=== PATIENT | female | born 1995 | race Caucasian/White ===

== ENCOUNTER 2022-03-13 02:09 | Outpatient (CLI) | payer SELFPAY ==
[2022-03-13 02:26] VITALS: BP 109/60
[2022-03-13] MEDS ORDERED: LACTATED RINGERS 1,000 ML IV ONE (02:44)
[2022-03-13 03:49] LABS: Hematocrit 38.9 % (30.3-42.9); Hemoglobin 12.4 gm/dl (10.1-14.3); Mean Corpuscular HGB Conc 32 % (30-34); Mean Corpuscular Volume 84 fl (79-97); Red Blood Count 4.61 M/mm3 (3.65-5.03); Red Cell Distribution Width 15.6 % (13.2-15.2)
[2022-03-13 04:03] LABS: Platelet Count 179 K/mm3 (140-440)
--- NOTE | 2022-03-13 04:14 | Ultrasound Report ---
LIMITED OBSTETRICAL ULTRASOUND INDICATION: clyde,efw,cervical length COMPARISON: None available FINDINGS: Single intrauterine is seen in a cephalic position. Cardiac activity was document ed with heart rate of 183 bpm period placenta is not well evaluated but appears to be posterior and is free of the internal cervical os. Cervical length is 4.6 cm and is closed. No fluid is seen w ithin the cervical canal. Estimated gestational age is 29 weeks 3 days which corresponds with clinica l dating. No significant discrepancy is seen between head and body measurements. Amniotic fluid volum e appears qualitatively appropriate and CLYDE is within normal limits at 14.3 cm. Estimated weigh t is 136 2 g +/- 2 102 g in the 16th percentile. IMPRESSION: 29 week 3 day intrauterine without obvious acute abnormality Signer Name: Ole Rivera MD Signed: 03/13/2022 4:10 AM Workstation Name: [id number]
[2022-03-13 04:52] LABS: Color,Urine Yellow (Yellow)
[2022-03-13 04:54] LABS: Bacteria,Urine 1+ /HPF (Negative); Mucus,Urine 2+ /HPF
[2022-03-13 04:58] LABS: Ictotest,Urine Negative (Negative)
== END 2022-03-13 05:15 | disposition home or self-care (01) ==
LOC: TRG 02:09 → APU 02:10 → TRG 05:15
PROVIDERS: ATTEND Obstetrics & Gynecology Gynecology
DX: O62.9 Abnormality of forces of labor, unspecified (principal); Z3A.29 29 weeks gestation of pregnancy
CPT/HCPCS: 36415; 59025; 76816; 81001; 82731; 85027; 96360; J7120

== ENCOUNTER 2022-03-13 17:25 | Inpatient (IN) | payer SELFPAY ==
[2022-03-13] MEDS ORDERED: LACTATED RINGERS 1,000 ML IV ONE (17:56)
[2022-03-13] MEDS ORDERED: ACETAMINOPHEN 325 MG TAB PO ONE (18:20)
[2022-03-13 18:27] LABS: Bacteria,Urine 2+ /HPF (Negative)
[2022-03-13 18:30] LABS: WBC,Urine > 182.0 /HPF (0.0-6.0)
[2022-03-13 18:31] LABS: Color,Urine Straw (Yellow)
[2022-03-13] MEDS ORDERED: ACETAMINOPHEN 500 MG TAB ONE (18:39)
[2022-03-13] MEDS ORDERED: ACETAMINOPHEN 500 MG TAB PO ONE (18:40)
[2022-03-14] MEDS ORDERED: LACTATED RINGERS 1,000 ML ONE (01:03)
[2022-03-14 01:28] LABS: Basophils % (Auto) 0.2 % (0.0-1.8); Eosinophils % (Auto) 0.1 % (0.0-4.3); Hematocrit 37.3 % (30.3-42.9); Hemoglobin 12.4 gm/dl (10.1-14.3); Lymphocytes # (Auto) 0.7 K/mm3 (1.2-5.4); Lymphocytes % (Auto) 6.3 % (13.4-35.0); Mean Corpuscular HGB Conc 33 % (30-34); Mean Corpuscular Volume 84 fl (79-97); Monocytes # (Auto) 0.9 K/mm3 (0.0-0.8); Monocytes % (Auto) 8.9 % (0.0-7.3); Platelet Count 170 K/mm3 (140-440); Red Blood Count 4.46 M/mm3 (3.65-5.03); Red Cell Distribution Width 15.9 % (13.2-15.2)
[2022-03-14] MEDS ORDERED: ACETAMINOPHEN 500 MG TAB PO ONE ×2 (01:55→17:00)
[2022-03-14] MEDS ORDERED: fentaNYL 100 MCG/2 ML INJ IV PRN (05:59)
--- NOTE | 2022-03-14 05:59 | History and Physical Report ---
History of Present Illness Date of examination: 03/14/22 Date of admission: 03/14/2022 Chief complaint: Fever and contractions History of present illness: 26-year-old primigravida at 31 weeks gestation presents to OB triage reporting contractions and subjective fever. There is no vaginal bleeding. There is no leaking fluid. There is good movement. The patient has upper body myalgias and flank pain. In OB triage, contractions were every 2 to 3 minutes. fibronectin test was positive. However, recent transvaginal pelvic ultrasound showed a cervical length of greater than 4 cm. Contractions were mild in nature. The patient had a temperature that is greater than 102 F. Lactic acid level was elevated. Clinical exam and urinalysis was suspicious for pyelonephritis. Intravenous Rocephin was ordered. The patient was admitted to the antepartum unit for management of pyelonephritis, lactic acidosis, fever, and contractions. 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 Family/Genetic History: diabetes, hypertension Social history: no significant social history - Obstetrical History Expected Date of Delivery: 05/16/22 Actual Gestation: 31 Week(s) 0 Day(s) : 1 Para: 0 Hx # Term Pregnancies: 0 Number of Pregnancies: 0 Spontaneous Abortions: 0 Induced : 0 Number of Living Children: 0 Medications and Allergies Allergies Allergy/AdvReac Type Severity Reaction Status Date / Time No Known Allergies Allergy Verified 03/13/22 17:33 Review of Systems All systems: negative - Vital Signs Vital signs: Vital Signs Pulse BP Pulse Ox 113 H 98/54 95 03/13/22 17:31 03/13/22 17:31 03/13/22 17:31 Temp Pulse Resp BP Pulse Ox 98.6 F 75 16 120/56 95 03/14/22 05:07 03/14/22 05:54 03/14/22 05:07 03/14/22 01:29 03/14/22 05:54 - Physical Exam Breasts: Positive: normal Cardiovascular: Regular rate Lungs: Positive: Normal air movement Abdomen: Positive: normal appearance, soft, other (There is CVA tenderness) Genitourinary (Female): Positive: normal external genitalia, normal perenium Vulva: both: normal Vagina: Positive: normal moisture Uterus: Positive: enlarged Adnexa: both: normal Anus/Rectum: Positive: normal perianal skin Extremities: Positive: normal Deep Tendon Reflex Grade: Normal +2 - Obstetrical FHR: category 1 Uterine Contraction Monitor Mode: External Uterine Contraction Frequency (min): 3 Results Result Diagrams: 03/14/22 01:17 Abnormal lab results 03/13/22 03/14/22 03/14/22 Range/Units Unknown 01:17 01:17 RDW 15.9 H (13.2-15.2) % Lymph % (Auto) 6.3 L (13.4-35.0) % [place] % (Auto) 8.9 H (0.0-7.3) % Lymph # (Auto) 0.7 L (1.2-5.4) K/mm3 [place] # (Auto) 0.9 H (0.0-0.8) K/mm3 Seg Neutrophils % 84.5 H (40.0-70.0) % Seg Neutrophils # 9.0 H (1.8-7.7) K/mm3 Lactic Acid 2.30 H* (0.7-2.0) mmol/L Urine WBC (Auto) > 182.0 H (0.0-6.0) /HPF fFN= (+) Ultrasound: report reviewed, image reviewed, other (OB Ultrasound Limited= SLIUP. Vertex. Posterio placenta. EFW= 1362 g (16th %-ile). AF= 14.3 cm. Cervical length= 4.6 cm) Assessment and Plan - Patient Problems (1) 31 weeks gestation of Current Visit: Yes Status: Acute Plan to address problem: care is up-to-date at [facility]. 1 hour GTT is normal. GBS culture is ordered. (2) Pyelonephritis affecting in third trimester Current Visit: Yes Status: Acute Plan to address problem: Clinical exam and urinalysis is suspicious for pyelonephritis. Start IV Rocephin. After patient stabilizes and 24-48 hours, discharged home with oral Omnicef. Straight cath urine culture ordered. (3) uterine contractions in third trimester, antepartum Current Visit: Yes Status: Acute Plan to address problem: Although fibronectin was positive, cervical length is greater than 4 cm and cervix appears closed on ultrasound. Therefore, labor is unlikely. Thus, no glucocorticoids/magnesium/tocolytics at this time. (4) Maternal pyrexia, antepartum Current Visit: Yes Status: Acute Plan to address problem: Temperature was greater than 102F. I believe that pyelonephritis is the cause for this fever. Out of an abundance of caution, blood cultures are ordered. Urine culture was ordered as well. SARS-CoV-2 PCR was ordered. Lactic acid level was elevated. (5) Lactic acidosis Current Visit: Yes Status: Acute Plan to address problem: Lactic acid level is elevated. Blood cultures ordered. Urine cultures ordered. I ordered intravenous Rocephin for treatment of pyelonephritis. Repeat lactic acid level in the morning. Clinically, the patient is hemodynamically stable. In the event the patient's clinical condition changes and the patient comes hemodynamically unstable, consider infectious disease consultation.
[2022-03-14] MEDS ORDERED: LACTATED RINGERS 1,000 ML IV SCH (06:00)
--- NOTE | 2022-03-14 07:58 | Ultrasound Report ---
ULTRASOUND RENAL INDICATION / CLINICAL INFORMATION: Pyelonephritis. COMPARISON: None available. FINDINGS: RIGHT KIDNEY: Length = 12.1 cm. [normal > 9 cm] - Parenchymal Thickness = 1.8 cm. [normal > 1.5 cm] - Echogenicity: Normal. - Hydronephrosis: None. - Cyst or mass: No significant abnormality. - Stones: None seen. LEFT KIDNEY: Length = 12.4 cm. [normal > 9 cm] - Parenchymal Thickness = 2.1 cm. [normal > 1.5 cm] - Echogenicity: Normal. - Hydronephrosis: None. - Cyst or mass: No significant abnormality. - Stones: None seen. URINARY BLADDER: No significant abnormality. FREE FLUID: None. ADDITIONAL FINDINGS: None. IMPRESSION: No significant abnormality. If pyelonephritis is suspected, CT abdomen pelvis with contrast should p rovide the most information. Signer Name: Jerry Bullard Jr, MD Signed: 03/14/2022 7:53 AM Workstation Name: [id number]
[2022-03-14] MEDS ORDERED: SODIUM CHLORIDE 0.9% 1000 ML 1,000 ML IV SCH (08:00)
[2022-03-14] MEDS ORDERED: cefTRIAXone/NS 1 GM/50 ML 1 GM/50 ML BAG IV SCH (08:00)
[2022-03-14] MEDS: ACETAMINOPHEN 325 MG TAB PO PRN ×2 (09:31→23:02)
[2022-03-14] MEDS: HEPARIN 5,000 UNIT/1 ML VIAL SUB-Q SCH ×2 (09:35→22:32)
[2022-03-14 10:54] LABS: Blood Urea Nitrogen 7 mg/dL (7-17); Calcium 8.6 mg/dL (8.4-10.2); Hemolysis Index 13
[2022-03-14 11:01] LABS: BUN/Creatinine Ratio 18
[2022-03-14 12:57] LABS: Basophils % (Auto) 0.2 % (0.0-1.8); Eosinophils % (Auto) 0.1 % (0.0-4.3); Hematocrit 32.4 % (30.3-42.9); Hemoglobin 10.5 gm/dl (10.1-14.3); Lymphocytes # (Auto) 0.4 K/mm3 (1.2-5.4); Lymphocytes % (Auto) 5.3 % (13.4-35.0); Mean Corpuscular HGB Conc 32 % (30-34); Mean Corpuscular Volume 85 fl (79-97); Monocytes # (Auto) 0.5 K/mm3 (0.0-0.8); Monocytes % (Auto) 6.6 % (0.0-7.3); Platelet Count 138 K/mm3 (140-440); Red Blood Count 3.79 M/mm3 (3.65-5.03); Red Cell Distribution Width 16.1 % (13.2-15.2)
[2022-03-14] MEDS ORDERED: GENTAMICIN/NS 80 MG/100 ML 100 ML IV ONE (14:43)
--- NOTE | 2022-03-14 14:58 | Event Note ---
Date: 03/14/22 Patient still spiking temps. 102F. Cultures pending. using tepid sponging and tylenol to lower temps. Started on ancef and gentamicin. Hospitalist consulted.
[2022-03-14] MEDS ORDERED: ceFAZolin/NS 1 GM/50 ML 1 GM/50 ML BAG IV SCH (15:00)
--- NOTE | 2022-03-14 16:34 | Consultation ---
History of Present Illness - Reason for Consult Consult date: 03/14/22 Medical management Requesting physician: KAIA LEOS - History of Present Illness 26-year-old primigravida at 31 weeks gestation presents to OB triage reporting contractions and subjective fever. There is no vaginal bleeding. There is no leaking fluid. There is good movement. The patient has upper body myalgias and flank pain. In OB triage, contractions were every 2 to 3 minutes. fibronectin test was positive. However, recent transvaginal pelvic ultrasound showed a cervical length of greater than 4 cm. Contractions were mild in nature. The patient had a temperature that is greater than 102 F. Lactic acid level was elevated. Clinical exam and urinalysis was suspicious for pyelonephritis. Intravenous Rocephin was ordered. The patient was admitted to the antepartum unit for management of pyelonephritis, lactic acidosis, fever, and contractions. 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 Family/Genetic History: diabetes, hypertension Social history: no significant social history - Obstetrical History Expected Date of Delivery: 05/16/22 Actual Gestation: 31 Week(s) 0 Day(s) : 1 Para: 0 Hx # Term Pregnancies: 0 Number of Pregnancies: 0 Spontaneous Abortions: 0 Induced : 0 Number of Living Children: 0 Medications and Allergies Allergies Allergy/AdvReac Type Severity Reaction Status Date / Time No Known Allergies Allergy Verified 03/13/22 17:33 Review of Systems All systems: negative Past History Social history: no significant social history Medications and Allergies Allergies Allergy/AdvReac Type Severity Reaction Status Date / Time No Known Allergies Allergy Verified 03/13/22 17:33 Active Meds: Active Medications Acetaminophen (Acetaminophen 325 Mg Tab) 650 mg PO Q4H PRN PRN Reason: Pain, Mild (1-3) Last Admin: 03/14/22 09:31 Dose: 650 mg Fentanyl (Fentanyl 100 Mcg/2 Ml Inj) 100 mcg IV Q2H PRN PRN Reason: Pain, Moderate (4-6) Heparin Sodium (Porcine) (Heparin 5,000 Unit/1 Ml Vial) 5,000 unit SUB-Q Q12HR CAMRYN Last Admin: 03/14/22 09:35 Dose: 5,000 unit Lactated Ringer's (Lactated Ringers) 1,000 mls @ 125 mls/hr IV DIRECT CAMRYN Ceftriaxone Sodium (Rocephin/Ns 1 Gm/50 Ml) 1 gm in 50 mls @ 100 mls/hr IV Q24H CAMRYN; Protocol Stop: 03/21/22 07:59 Last Admin: 03/14/22 09:12 Dose: 100 mls/hr Sodium Chloride (Nacl 0.9% 1000 Ml) 1,000 mls @ 150 mls/hr IV DIRECT CAMRYN Last Admin: 03/14/22 09:09 Dose: 150 mls/hr Cefazolin Sodium (Ancef/Ns 1 Gm/50 Ml) 1 gm in 50 mls @ 100 mls/hr IV Q8H CAMRYN; Protocol Last Admin: 03/14/22 15:31 Dose: 100 mls/hr Exam - Constitutional Vitals: Temp Pulse Resp BP Pulse Ox 102.9 F H 110 H 16 107/59 96 03/14/22 14:34 03/14/22 16:16 03/14/22 14:34 03/14/22 16:15 03/14/22 16:16 General appearance: Present: no acute distress, well-nourished - EENT Eyes: Present: PERRL ENT: hearing intact, clear oral mucosa - Neck Neck: Present: supple, normal ROM - Respiratory Respiratory effort: normal Respiratory: bilateral: CTA - Cardiovascular Heart rate: 78 Rhythm: regular Heart Sounds: Present: S1 & S2. Absent: rub, click - Extremities Extremities: pulses symmetrical, No edema Peripheral Pulses: within normal limits - Abdominal General gastrointestinal: Present: soft, non-tender, non-distended, normal bowel sounds Female genitourinary: Present: normal - Integumentary Integumentary: Present: clear, warm, dry - Musculoskeletal Musculoskeletal: gait normal, strength equal bilaterally - Psychiatric Psychiatric: appropriate mood/affect, intact judgment & insight - Neurologic Neurologic: CNII-XII intact, moves all extremities - Allied Health Allied health notes reviewed: nursing, case management Results - Labs CBC & Chem 7: 03/14/22 11:12 03/14/22 10:20 Labs: Abnormal lab results 03/13/22 03/14/22 03/14/22 Range/Units Unknown 01:17 01:17 RDW 15.9 H (13.2-15.2) % Plt Count (140-440) K/mm3 Lymph % (Auto) 6.3 L (13.4-35.0) % [place] % (Auto) 8.9 H (0.0-7.3) % Lymph # (Auto) 0.7 L (1.2-5.4) K/mm3 [place] # (Auto) 0.9 H (0.0-0.8) K/mm3 Seg Neutrophils % 84.5 H (40.0-70.0) % Seg Neutrophils # 9.0 H (1.8-7.7) K/mm3 Potassium (3.6-5.0) mmol/L Creatinine (0.6-1.2) mg/dL Glucose (65-100) mg/dL POC Glucose (70-105) mg/dL Lactic Acid 2.30 H* (0.7-2.0) mmol/L Urine WBC (Auto) > 182.0 H (0.0-6.0) /HPF 03/14/22 03/14/22 03/14/22 Range/Units 10:20 11:12 11:19 RDW 16.1 H (13.2-15.2) % Plt Count 138 L (140-440) K/mm3 Lymph % (Auto) 5.3 L (13.4-35.0) % [place] % (Auto) (0.0-7.3) % Lymph # (Auto) 0.4 L (1.2-5.4) K/mm3 [place] # (Auto) (0.0-0.8) K/mm3 Seg Neutrophils % 87.8 H (40.0-70.0) % Seg Neutrophils # (1.8-7.7) K/mm3 Potassium 3.0 L (3.6-5.0) mmol/L Creatinine 0.4 L (0.6-1.2) mg/dL Glucose 29 L* (65-100) mg/dL POC Glucose 119 H (70-105) mg/dL Lactic Acid (0.7-2.0) mmol/L Urine WBC (Auto) (0.0-6.0) /HPF Short CBC 03/14/22 Range/Units 11:12 WBC 7.2 (4.5-11.0) K/mm3 Hgb 10.5 (10.1-14.3) gm/dl Hct 32.4 (30.3-42.9) % Plt Count 138 L (140-440) K/mm3 [facility] 03/14/22 10:20 Sodium 140 Potassium 3.0 L Chloride 103.7 Carbon Dioxide 22 BUN 7 Creatinine 0.4 L Glucose 29 L* Calcium 8.6 Assessment and Plan - Patient Problems (1) Pyelonephritis affecting in third trimester Current Visit: Yes Status: Acute Plan to address problem: Patient initiated on IV ceftriaxone pending urine cultures Ceftriaxone should be sensitive to gram-negative rods Usually Cipro and Levaquin have assistance in this community No need for gentamicin (2) Hypoglycemia Current Visit: Yes Status: Acute Plan to address problem: Patient initiated on D5W drip Glucagon if necessary (3) Hypokalemia Current Visit: Yes Status: Acute Plan to address problem: Supplemented (4) DVT prophylaxis Current Visit: Yes Status: Acute Plan to address problem: On heparin and GI prophylaxis (5) Advance care planning Current Visit: Yes Status: Acute Plan to address problem: Disease education conducted, care plan discussed, diagnosis discussed and prognosis discussed. Patient acknowledged understanding with care plan. +30 minutes.
[2022-03-14] MEDS ORDERED: ACETAMINOPHEN 500 MG TAB ONE (16:54)
[2022-03-14] MEDS ORDERED: SODIUM CHLORIDE 0.9% IV SCH (19:45)
[2022-03-14] MEDS ORDERED: GENTAMICIN/NS 100 MG/100 ML 100 MG/100 ML BAG IV SCH (19:45)
[2022-03-14] MEDS ORDERED: GENTAMICIN IV SCH (19:45)
[2022-03-14] MEDS ORDERED: SODIUM CHLORIDE 0.9% 1000 ML 1,000 ML IV ONE (19:51)
[2022-03-14] MEDS: POTASSIUM CHLORIDE 10 MEQ 10 MEQ/100 ML BAG IV SCH ×2 (22:24→23:54)
[2022-03-14] MEDS: SODIUM CHLORIDE 0.9% 1000 ML 1,000 ML IV SCH (22:51)
--- NOTE | 2022-03-14 23:49 | Ultrasound Report ---
LIMITED OBSTETRICAL ULTRASOUND INDICATION: contractions COMPARISON: 03/13/2022 FINDINGS: Very limited study of the cervix shows cervical length to be 4.7 cm which is similar to yes terday study. Smaller fluid is seen in the cervical canal but the internal os is not widened. IMPRESSION: Cervical findings as above Signer Name: Ole Rivera MD Signed: 03/14/2022 11:45 PM Workstation Name: [id number]
--- NOTE | 2022-03-14 23:54 | Event Note ---
Date: 03/14/22 CHIEF COMPLAINT: HD #1, Bacteremia, Urosepsis, Fever HISTORY OF PRESENT ILLNESS: 26-year-old primagravida at 31 weeks gestation reports subjective fevers and chills. Etiology was suspected to be pyelonephritis. The patient received 1 dose of Rocephin, 1 dose of Ancef, and 1 dose of gentamic in this morning/afternoon. Although lactic acid level decreased and patient remained hemodynamically stable, intermittent temperature elevations to the 102 F range continued. Therefore, hospitalist medicine (Dr. Arredondo) and infectious disease (Dr. Kim) was consulted. Thereafter, cefepime was ordered. labor was ruled out. OBJECTIVE: T= 102 F BP= 129/69 P= 118 EFM= category 2. ( tachycardia is presumed to be secondary to maternal tachycardia from bacteremia/urosepsis.) TOCO= q 2 min SVE= closed BACK= (R) CVAT LABS: Blood cultures= gram-negative rods (preliminary) Urine culture= pending GBS culture= pending fFN= (+) UA= >182 WBC, 2+ bacteria ABG= 7.46/24/103/16.8/-5.7/97.5% on RA Lactic Acid= 2.3 --> 1.3 K+= 3.0 Repeat CBC/BMP/lactic acid= ordered for 03/15/2022 at 7:00 am. RADIOLOGY: OB transvaginal ultrasound= cervical length is 4.7 cm Bilateral renal ultrasound= WNL OB Ultrasound Limited= SLIUP. Vertex. Posterior placenta. EFW= 1362 g (16th %-ile). CLYDE= 14.3 cm. IMPRESSION: 1.) 31 weeks 2.) Bacteremia 3.) Urosepsis 4.) Maternal pyrexia 5.) Lactic acidosis 6.) contractions 7.) Hypokalemia PLAN: 1.) care is up-to-date at [facility]. 1 hour GTT is within normal limits. GBS cultures pending. 2.) Await final microbiology results of blood cultures and urine culture. 3.) In the interim, continue intravenous cefepime for treatment of bacteremia/urosepsis. 4.) Continue IV normal saline. 5.) Replace K+ with KCl riders x5 and recheck BMP in the morning. 6.) Await formal infectious disease consultation. 7.) Hospital medicine service already consulted. 8.) NST every shift.
[2022-03-14] MEDS: CEFEPIME/NS 2 GM/100 ML 2 GM/100 ML BAG IV SCH (23:55)
[2022-03-15] MEDS ORDERED: CEFEPIME/NS 2 GM/100 ML 2 GM/100 ML BAG IV SCH
[2022-03-15] MEDS: POTASSIUM CHLORIDE 10 MEQ 10 MEQ/100 ML BAG IV SCH ×3 (01:06→03:45)
[2022-03-15] MEDS: ACETAMINOPHEN 325 MG TAB PO PRN ×2 (03:57→11:55)
[2022-03-15] MEDS ORDERED: POTASSIUM CHLORIDE ER 20 MEQ TAB PO ONE (06:43)
[2022-03-15] MEDS: CEFEPIME/NS 2 GM/100 ML 2 GM/100 ML BAG IV SCH ×2 (07:28→16:22)
[2022-03-15 08:26] LABS: Basophils % (Auto) 0.1 % (0.0-1.8); Hematocrit 31.1 % (30.3-42.9); Hemoglobin 10.1 gm/dl (10.1-14.3); Lymphocytes # (Auto) 0.8 K/mm3 (1.2-5.4); Lymphocytes % (Auto) 9.1 % (13.4-35.0); Mean Corpuscular HGB Conc 33 % (30-34); Mean Corpuscular Volume 85 fl (79-97); Monocytes # (Auto) 0.8 K/mm3 (0.0-0.8); Monocytes % (Auto) 9.7 % (0.0-7.3); Platelet Count 121 K/mm3 (140-440); Red Blood Count 3.67 M/mm3 (3.65-5.03); Red Cell Distribution Width 16.6 % (13.2-15.2)
[2022-03-15 08:41] LABS: Blood Urea Nitrogen 4 mg/dL (7-17); Calcium 7.2 mg/dL (8.4-10.2); Hemolysis Index 5
[2022-03-15 09:09] LABS: BUN/Creatinine Ratio 10
--- NOTE | 2022-03-15 09:30 | Consultation ---
History of Present Illness - Reason for Consult Consult date: 03/15/22 GNR bacteremia Requesting physician: LIZZY CASTILLO - History of Present Illness The patient is a 26-year-old female about 31 weeks was admitted with fever, myalgias, flank pain. UA showed significant pyuria. Blood cultures turned positive for gram-negative rods, hence infectious diseases was consulted. She had received 1 dose of ceftriaxone, Ancef and gentamicin and was later switched to IV cefepime. Afebrile today. Renal ultrasound showed no significant abnormality. Has R flank pain, feeling slightly better. Does not speak Hungarian, Lao speaking. Review of Systems: As per HPI Past History Social history: no significant social history Medications and Allergies Allergies Allergy/AdvReac Type Severity Reaction Status Date / Time No Known Allergies Allergy Verified 03/13/22 17:33 Active Meds: Active Medications Acetaminophen (Acetaminophen 325 Mg Tab) 650 mg PO Q4H PRN PRN Reason: Pain, Mild (1-3) Last Admin: 03/15/22 03:57 Dose: 650 mg Fentanyl (Fentanyl 100 Mcg/2 Ml Inj) 100 mcg IV Q2H PRN PRN Reason: Pain, Moderate (4-6) Heparin Sodium (Porcine) (Heparin 5,000 Unit/1 Ml Vial) 5,000 unit SUB-Q Q12HR CAMRYN Last Admin: 03/14/22 22:32 Dose: 5,000 unit Sodium Chloride (Nacl 0.9% 1000 Ml) 1,000 mls @ 150 mls/hr IV DIRECT CAMRYN Last Admin: 03/14/22 22:51 Dose: 150 mls/hr Cefepime HCl (Cefepime/Ns 2 Gm/100 Ml) 2 gm in 100 mls @ 200 mls/hr IV Q8H CAMRYN; Protocol Stop: 03/22/22 00:00 Last Admin: 03/15/22 07:28 Dose: 200 mls/hr Physical Examination - Physical Exam Narrative exam: Physical Exam: Constitutional: Alert, cooperative. No acute distress Head, Ears, Nose: Normocephalic, atraumatic. External ears, nose normal Eyes: Conjunctivae/corneas clear. No icterus. No ptosis. Neck: Supple, no meningeal signs Cardiovascular: S1, S2 + Respiratory: Good air entry, clear to auscultation bilaterally GI: Soft, non-tender; bowel sounds normal. No peritoneal signs. Gravid uterus. Mild R flank tenderness Musculoskeletal: No pedal edema, no cyanosis. Skin: No rash or abscess Hem/Lymphatic: No palpable cervical or supraclavicular nodes. No lymphangitis Psych: Mood ok. Affect normal Neurological: Awake, alert, oriented. No gross abnormality - Constitutional Vitals: Vital Signs Temp Pulse Resp BP Pulse Ox 98.8 F 103 H 20 106/57 95 03/15/22 07:23 03/15/22 09:23 03/15/22 07:23 03/15/22 07:23 03/15/22 09:23 Temperature -Last 24 Hours Temperature 98.8 F Temperature 98.7 F Temperature 99.7 F Temperature 100.6 F Temperature 101.6 F Temperature 102 F Temperature 99.4 F Temperature 102.8 F Temperature 102.9 F Temperature 97.9 F Results - Labs CBC & Chem 7: 03/15/22 07:50 03/15/22 07:50 Labs: Abnormal lab results 03/14/22 03/14/22 03/14/22 Range/Units 10:20 11:12 11:19 RDW 16.1 H (13.2-15.2) % Plt Count 138 L (140-440) K/mm3 Lymph % (Auto) 5.3 L (13.4-35.0) % [place] % (Auto) (0.0-7.3) % Lymph # (Auto) 0.4 L (1.2-5.4) K/mm3 Seg Neutrophils % 87.8 H (40.0-70.0) % ABG pH (7.320-7.450) POC ABG pCO2 (32.0-48.0) mmHg ABG Hemoglobin (12.0-17.5) ABG Sodium (136.0-145.0) mmol/L ABG Chloride (98-107) mmol/L ABG Glucose (65-95) mg/dL Carboxyhemoglobin (0.5-1.5) Sodium (137-145) mmol/L Potassium 3.0 L (3.6-5.0) mmol/L Chloride (98-107) mmol/L Carbon Dioxide (22-30) mmol/L BUN (7-17) mg/dL Creatinine 0.4 L (0.6-1.2) mg/dL Glucose 29 L* (65-100) mg/dL POC Glucose 119 H (70-105) mg/dL Calcium (8.4-10.2) mg/dL Arterial Blood Glucose (65-95) mg/dL Arterial Blood Ionized Calcium (4.6-5.3) mg/dL 03/14/22 03/15/22 03/15/22 Range/Units 21:16 07:50 07:50 RDW 16.6 H (13.2-15.2) % Plt Count 121 L (140-440) K/mm3 Lymph % (Auto) 9.1 L (13.4-35.0) % [place] % (Auto) 9.7 H (0.0-7.3) % Lymph # (Auto) 0.8 L (1.2-5.4) K/mm3 Seg Neutrophils % 81.1 H (40.0-70.0) % ABG pH 7.460 H (7.320-7.450) POC ABG pCO2 24.1 L (32.0-48.0) mmHg ABG Hemoglobin 10.4 L (12.0-17.5) ABG Sodium 132.8 L (136.0-145.0) mmol/L ABG Chloride 109.0 H (98-107) mmol/L ABG Glucose 100 H (65-95) mg/dL Carboxyhemoglobin 0.3 L (0.5-1.5) Sodium 136 L (137-145) mmol/L Potassium 3.4 L (3.6-5.0) mmol/L Chloride 109.8 H (98-107) mmol/L Carbon Dioxide 19 L (22-30) mmol/L BUN 4 L (7-17) mg/dL Creatinine 0.4 L (0.6-1.2) mg/dL Glucose (65-100) mg/dL POC Glucose (70-105) mg/dL Calcium 7.2 L D (8.4-10.2) mg/dL Arterial Blood Glucose 100 H (65-95) mg/dL Arterial Blood Ionized Calcium 1.1 L (4.6-5.3) mg/dL Assessment and Plan Cultures: 03/14/2022 blood culture: GNR COVID-19 PCR: Negative Influenza A, B rapid antigen: Negative A/P: 26-year-old female about 21 weeks admitted with: #Sepsis, GNR bacteremia secondary to UTI, ?R pyelonephritis #: About 31 weeks . #Mild thrombocytopenia: Probably from sepsis Recs: -continue IV cefepime 2 g every 8 hours -Follow-up blood culture GNR identification and susceptibilities for discharge antibiotic recommendations -Will also need PO abx prophylaxis till delivery Ruddy Kim MD, FACP, [facility] O: [phone] F: [phone] C: [phone]
--- NOTE | 2022-03-15 10:09 | Progress Note ---
Assessment and Plan A: IUP @ 31 07/14 Weeks Category I Tracing Bacteremia Urosepsis P: Appreciate ID Consult Continue Cefepime 2g q 8 hours Subjective - Subjective Date of service: 03/15/22 Patient reports: movement normal, contractions, other (States that she is having "kidney pain" rates it 01/14) Objective - Vital Signs Vital Signs: Vital Signs - 12hr 03/14/22 03/14/22 03/14/22 22:08 22:13 22:18 Temperature Pulse Rate 102 H 104 H 112 H Respiratory Rate Blood Pressure Blood Pressure [Right] O2 Sat by Pulse 99 99 98 Oximetry 03/14/22 03/14/22 03/14/22 22:23 22:24 22:28 Temperature 102 F H Pulse Rate 111 H 112 H Respiratory Rate Blood Pressure Blood Pressure [Right] O2 Sat by Pulse 99 98 Oximetry 03/14/22 03/14/22 03/14/22 22:33 22:36 22:38 Temperature Pulse Rate 111 H 112 H 111 H Respiratory Rate Blood Pressure Blood Pressure [Right] O2 Sat by Pulse 98 93 98 Oximetry 03/14/22 03/14/22 03/14/22 22:43 22:48 22:53 Temperature Pulse Rate 110 H 116 H 119 H Respiratory Rate Blood Pressure Blood Pressure [Right] O2 Sat by Pulse 97 97 97 Oximetry 03/14/22 03/14/22 03/14/22 22:58 23:03 23:08 Temperature Pulse Rate 112 H 112 H 117 H Respiratory Rate Blood Pressure Blood Pressure [Right] O2 Sat by Pulse 97 97 96 Oximetry 03/14/22 03/14/22 03/14/22 23:09 23:13 23:18 Temperature Pulse Rate 116 H 120 H 116 H Respiratory Rate Blood Pressure 129/69 Blood Pressure [Right] O2 Sat by Pulse 98 97 Oximetry 03/14/22 03/14/22 03/14/22 23:23 23:28 23:33 Temperature Pulse Rate 114 H 116 H 119 H Respiratory Rate Blood Pressure Blood Pressure [Right] O2 Sat by Pulse 96 97 96 Oximetry 03/14/22 03/14/22 03/14/22 23:38 23:43 23:48 Temperature Pulse Rate 123 H 121 H 122 H Respiratory Rate Blood Pressure Blood Pressure [Right] O2 Sat by Pulse 96 96 96 Oximetry 03/14/22 03/14/22 03/15/22 23:53 23:58 00:03 Temperature Pulse Rate 118 H 115 H 124 H Respiratory Rate Blood Pressure Blood Pressure [Right] O2 Sat by Pulse 96 97 96 Oximetry 03/15/22 03/15/22 03/15/22 00:08 00:13 00:26 Temperature Pulse Rate 125 H 127 H 118 H Respiratory Rate Blood Pressure Blood Pressure [Right] O2 Sat by Pulse 95 95 96 Oximetry 03/15/22 03/15/22 03/15/22 00:31 00:36 00:39 Temperature 101.6 F H Pulse Rate 116 H 109 H Respiratory Rate Blood Pressure Blood Pressure [Right] O2 Sat by Pulse 95 95 Oximetry 03/15/22 03/15/22 03/15/22 00:41 00:46 00:51 Temperature Pulse Rate 117 H 112 H 115 H Respiratory Rate Blood Pressure Blood Pressure [Right] O2 Sat by Pulse 96 96 96 Oximetry 03/15/22 03/15/22 03/15/22 00:56 01:01 01:06 Temperature Pulse Rate 112 H 115 H 116 H Respiratory Rate Blood Pressure Blood Pressure [Right] O2 Sat by Pulse 95 96 96 Oximetry 03/15/22 03/15/22 03/15/22 01:11 01:16 01:21 Temperature Pulse Rate 112 H 111 H 107 H Respiratory Rate Blood Pressure Blood Pressure [Right] O2 Sat by Pulse 96 96 96 Oximetry 03/15/22 03/15/22 03/15/22 01:26 01:31 01:36 Temperature Pulse Rate 108 H 103 H 103 H Respiratory Rate Blood Pressure Blood Pressure [Right] O2 Sat by Pulse 97 96 97 Oximetry 03/15/22 03/15/22 03/15/22 01:41 01:45 01:46 Temperature Pulse Rate 107 H 98 H 105 H Respiratory Rate Blood Pressure Blood Pressure [Right] O2 Sat by Pulse 96 94 96 Oximetry 03/15/22 03/15/22 03/15/22 01:51 01:56 02:01 Temperature Pulse Rate 103 H 106 H 106 H Respiratory Rate Blood Pressure Blood Pressure [Right] O2 Sat by Pulse 97 96 96 Oximetry 03/15/22 03/15/22 03/15/22 02:06 02:11 02:16 Temperature Pulse Rate 105 H 102 H 105 H Respiratory Rate Blood Pressure Blood Pressure [Right] O2 Sat by Pulse 97 96 96 Oximetry 03/15/22 03/15/22 03/15/22 02:21 02:26 02:31 Temperature Pulse Rate 102 H 106 H 104 H Respiratory Rate Blood Pressure Blood Pressure [Right] O2 Sat by Pulse 96 96 97 Oximetry 03/15/22 03/15/22 03/15/22 02:36 02:41 02:46 Temperature Pulse Rate 107 H 107 H 111 H Respiratory Rate Blood Pressure Blood Pressure [Right] O2 Sat by Pulse 96 96 96 Oximetry 03/15/22 03/15/22 03/15/22 02:51 02:56 03:01 Temperature Pulse Rate 104 H 106 H 105 H Respiratory Rate Blood Pressure Blood Pressure [Right] O2 Sat by Pulse 96 96 96 Oximetry 03/15/22 03/15/22 03/15/22 03:06 03:11 03:16 Temperature Pulse Rate 111 H 104 H 105 H Respiratory Rate Blood Pressure Blood Pressure [Right] O2 Sat by Pulse 97 96 96 Oximetry 03/15/22 03/15/22 03/15/22 03:21 03:26 03:31 Temperature Pulse Rate 104 H 109 H 97 H Respiratory Rate Blood Pressure Blood Pressure [Right] O2 Sat by Pulse 96 97 96 Oximetry 03/15/22 03/15/22 03/15/22 03:36 03:41 03:44 Temperature 100.6 F H Pulse Rate 105 H 106 H Respiratory Rate Blood Pressure Blood Pressure [Right] O2 Sat by Pulse 97 97 Oximetry 03/15/22 03/15/22 03/15/22 03:46 03:51 03:56 Temperature Pulse Rate 109 H 103 H 108 H Respiratory Rate Blood Pressure Blood Pressure [Right] O2 Sat by Pulse 97 97 96 Oximetry 03/15/22 03/15/22 03/15/22 04:01 04:06 04:11 Temperature Pulse Rate 106 H 102 H 94 H Respiratory Rate Blood Pressure Blood Pressure [Right] O2 Sat by Pulse 96 96 96 Oximetry 03/15/22 03/15/22 03/15/22 04:16 04:21 04:26 Temperature Pulse Rate 100 H 100 H 103 H Respiratory Rate Blood Pressure Blood Pressure [Right] O2 Sat by Pulse 96 96 97 Oximetry 03/15/22 03/15/22 03/15/22 04:31 04:36 04:41 Temperature Pulse Rate 100 H 103 H 104 H Respiratory Rate Blood Pressure Blood Pressure [Right] O2 Sat by Pulse 97 97 97 Oximetry 03/15/22 03/15/22 03/15/22 04:46 05:06 05:07 Temperature 99.7 F H Pulse Rate 118 H 105 H Respiratory Rate Blood Pressure Blood Pressure [Right] O2 Sat by Pulse 96 96 Oximetry 03/15/22 03/15/22 03/15/22 05:12 05:17 05:22 Temperature Pulse Rate 109 H 105 H 103 H Respiratory Rate Blood Pressure Blood Pressure [Right] O2 Sat by Pulse 96 95 95 Oximetry 03/15/22 03/15/22 03/15/22 05:27 05:32 05:37 Temperature Pulse Rate 108 H 105 H 106 H Respiratory Rate Blood Pressure Blood Pressure [Right] O2 Sat by Pulse 96 96 95 Oximetry 03/15/22 03/15/22 03/15/22 05:42 05:47 05:52 Temperature Pulse Rate 105 H 107 H 103 H Respiratory Rate Blood Pressure Blood Pressure [Right] O2 Sat by Pulse 96 96 95 Oximetry 03/15/22 03/15/22 03/15/22 05:57 06:02 06:07 Temperature Pulse Rate 103 H 114 H 113 H Respiratory Rate Blood Pressure Blood Pressure [Right] O2 Sat by Pulse 96 97 96 Oximetry 03/15/22 03/15/22 03/15/22 06:43 06:44 06:48 Temperature 98.7 F Pulse Rate 97 H 104 H 98 H Respiratory 24 Rate Blood Pressure 111/58 Blood Pressure [Right] O2 Sat by Pulse 94 94 Oximetry 03/15/22 03/15/22 03/15/22 06:53 06:58 07:03 Temperature Pulse Rate 95 H 98 H 97 H Respiratory Rate Blood Pressure Blood Pressure [Right] O2 Sat by Pulse 94 94 94 Oximetry 03/15/22 03/15/22 03/15/22 07:08 07:13 07:18 Temperature Pulse Rate 104 H 100 H 102 H Respiratory Rate Blood Pressure Blood Pressure [Right] O2 Sat by Pulse 95 94 94 Oximetry 03/15/22 03/15/22 03/15/22 07:23 07:28 07:33 Temperature 98.8 F Pulse Rate 104 H 102 H 100 H Respiratory 20 Rate Blood Pressure 106/57 Blood Pressure 106/57 [Right] O2 Sat by Pulse 95 96 96 Oximetry 03/15/22 03/15/2203/15/22 07:38 07:43 07:48 Temperature Pulse Rate 101 H 94 H 100 H Respiratory Rate Blood Pressure Blood Pressure [Right] O2 Sat by Pulse 96 95 96 Oximetry 03/15/22 03/15/22 03/15/22 07:53 07:58 08:01 Temperature Pulse Rate 95 H 100 H 110 H Respiratory Rate Blood Pressure Blood Pressure [Right] O2 Sat by Pulse 95 96 92 Oximetry 03/15/22 03/15/22 03/15/22 08:03 08:07 08:08 Temperature Pulse Rate 111 H 112 H 110 H Respiratory Rate Blood Pressure Blood Pressure [Right] O2 Sat by Pulse 91 92 93 Oximetry 03/15/22 03/15/22 03/15/22 08:13 08:14 08:18 Temperature Pulse Rate 105 H 107 H 98 H Respiratory Rate Blood Pressure Blood Pressure [Right] O2 Sat by Pulse 94 91 95 Oximetry 03/15/22 03/15/22 03/15/22 08:23 08:28 08:33 Temperature Pulse Rate 95 H 94 H 94 H Respiratory Rate Blood Pressure Blood Pressure [Right] O2 Sat by Pulse 96 95 96 Oximetry 03/15/22 03/15/22 03/15/22 08:38 08:43 08:48 Temperature Pulse Rate 95 H 95 H 97 H Respiratory Rate Blood Pressure Blood Pressure [Right] O2 Sat by Pulse 96 96 95 Oximetry 03/15/22 03/15/22 03/15/22 08:53 08:58 09:03 Temperature Pulse Rate 100 H 101 H 98 H Respiratory Rate Blood Pressure Blood Pressure [Right] O2 Sat by Pulse 94 96 97 Oximetry 03/15/22 03/15/22 03/15/22 09:08 09:13 09:18 Temperature Pulse Rate 90 90 98 H Respiratory Rate Blood Pressure Blood Pressure [Right] O2 Sat by Pulse 98 97 95 Oximetry 03/15/22 03/15/22 03/15/22 09:23 09:28 09:33 Temperature Pulse Rate 103 H 95 H 102 H Respiratory Rate Blood Pressure Blood Pressure [Right] O2 Sat by Pulse 95 95 95 Oximetry 03/15/22 03/15/22 03/15/22 09:38 09:43 09:48 Temperature Pulse Rate 96 H 95 H 98 H Respiratory Rate Blood Pressure Blood Pressure [Right] O2 Sat by Pulse 95 95 94 Oximetry 03/15/22 03/15/22 09:53 09:58 Temperature Pulse Rate 101 H 101 H Respiratory Rate Blood Pressure Blood Pressure [Right] O2 Sat by Pulse 95 94 Oximetry - Exam Breasts: normal Abdomen: Present: normal appearance, soft Uterus: Present: normal, firm, fundal height above umbilicus FHR: category 1 Uterine Contraction Monitor Mode: External Uterine Contraction Pattern: Irregular Uterine Tone Measurement Phase: Resting Uterine Contraction Intensity: Mild Extremities: normal - Labs Labs: Abnormal Labs 03/13/22 03/14/22 03/14/22 Unknown 01:17 01:17 RDW 15.9 H Plt Count Lymph % (Auto) 6.3 L [place] % (Auto) 8.9 H Lymph # (Auto) 0.7 L [place] # (Auto) 0.9 H Seg Neutrophils % 84.5 H Seg Neutrophils # 9.0 H ABG pH POC ABG pCO2 ABG Hemoglobin ABG Sodium ABG Chloride ABG Glucose Carboxyhemoglobin Sodium Potassium Chloride Carbon Dioxide BUN Creatinine Glucose POC Glucose Lactic Acid 2.30 H* Calcium Arterial Blood Glucose Arterial Blood Ionized Calcium Urine WBC (Auto) > 182.0 H 03/14/22 03/14/22 03/14/22 10:20 11:12 11:19 RDW 16.1 H Plt Count 138 L Lymph % (Auto) 5.3 L [place] % (Auto) Lymph # (Auto) 0.4 L [place] # (Auto) Seg Neutrophils % 87.8 H Seg Neutrophils # ABG pH POC ABG pCO2 ABG Hemoglobin ABG Sodium ABG Chloride ABG Glucose Carboxyhemoglobin Sodium Potassium 3.0 L Chloride Carbon Dioxide BUN Creatinine 0.4 L Glucose 29 L* POC Glucose 119 H Lactic Acid Calcium Arterial Blood Glucose Arterial Blood Ionized Calcium Urine WBC (Auto) 03/14/22 03/15/22 03/15/22 21:16 07:50 07:50 RDW 16.6 H Plt Count 121 L Lymph % (Auto) 9.1 L [place] % (Auto) 9.7 H Lymph # (Auto) 0.8 L [place] # (Auto) Seg Neutrophils % 81.1 H Seg Neutrophils # ABG pH 7.460 H POC ABG pCO2 24.1 L ABG Hemoglobin 10.4 L ABG Sodium 132.8 L ABG Chloride 109.0 H ABG Glucose 100 H Carboxyhemoglobin 0.3 L Sodium 136 L Potassium 3.4 L Chloride 109.8 H Carbon Dioxide 19 L BUN 4 L Creatinine 0.4 L Glucose POC Glucose Lactic Acid Calcium 7.2 L D Arterial Blood Glucose 100 H Arterial Blood Ionized Calcium 1.1 L Urine WBC (Auto) Laboratory Results - last 24 hr 03/14/22 03/14/22 03/14/22 09:00 10:20 10:45 WBC RBC Hgb Hct MCV MCH MCHC RDW Plt Count Lymph % (Auto) [place] % (Auto) Eos % (Auto) Baso % (Auto) Lymph # (Auto) [place] # (Auto) Eos # (Auto) Baso # (Auto) Seg Neutrophils % Seg Neutrophils # ABG pH POC ABG pCO2 POC ABG pO2 POC ABG HCO3 ABG O2 Saturation POC ABG Base Excess ABG Hemoglobin ABG Oxyhemoglobin ABG Methemoglobin ABG Sodium ABG Potassium ABG Chloride ABG Glucose ABG Lactate Carboxyhemoglobin FiO2 % Sodium 140 Potassium 3.0 L Chloride 103.7 Carbon Dioxide 22 Anion Gap 17 BUN 7 Creatinine 0.4 L Estimated GFR > 60 BUN/Creatinine Ratio 18 Glucose 29 L* POC Glucose Lactic Acid Calcium 8.6 Arterial Blood Glucose Arterial Blood Ionized Calcium SARS-CoV-2 (PCR) Negative Influenza A (Rapid) Influenza B (Rapid) Blood Type O POSITIVE Antibody Screen Negative 03/14/22 03/14/22 03/14/22 10:45 11:12 11:12 WBC 7.2 RBC 3.79 Hgb 10.5 Hct 32.4 MCV 85 MCH 28 MCHC 32 RDW 16.1 H Plt Count 138 L Lymph % (Auto) 5.3 L [place] % (Auto) 6.6 Eos % (Auto) 0.1 Baso % (Auto) 0.2 Lymph # (Auto) 0.4 L [place] # (Auto) 0.5 Eos # (Auto) 0.0 Baso # (Auto) 0.0 Seg Neutrophils % 87.8 H Seg Neutrophils # 6.4 ABG pH POC ABG pCO2 POC ABG pO2 POC ABG HCO3 ABG O2 Saturation POC ABG Base Excess ABG Hemoglobin ABG Oxyhemoglobin ABG Methemoglobin ABG Sodium ABG Potassium ABG Chloride ABG Glucose ABG Lactate Carboxyhemoglobin FiO2 % Sodium Potassium Chloride Carbon Dioxide Anion Gap BUN Creatinine Estimated GFR BUN/Creatinine Ratio Glucose POC Glucose Lactic Acid 1.30 Calcium Arterial Blood Glucose Arterial Blood Ionized Calcium SARS-CoV-2 (PCR) Influenza A (Rapid) Negative Influenza B (Rapid) Negative Blood Type Antibody Screen 03/14/22 03/14/22 03/15/22 11:19 21:16 07:50 WBC 8.4 RBC 3.67 Hgb 10.1 Hct 31.1 MCV 85 MCH 28 MCHC 33 RDW 16.6 H Plt Count 121 L Lymph % (Auto) 9.1 L [place] % (Auto) 9.7 H Eos % (Auto) 0.0 Baso % (Auto) 0.1 Lymph # (Auto) 0.8 L [place] # (Auto) 0.8 Eos # (Auto) 0.0 Baso # (Auto) 0.0 Seg Neutrophils % 81.1 H Seg Neutrophils # 6.8 ABG pH 7.460 H POC ABG pCO2 24.1 L POC ABG pO2 103.3 POC ABG HCO3 16.8 ABG O2 Saturation 97.5 POC ABG Base Excess -5.7 ABG Hemoglobin 10.4 L ABG Oxyhemoglobin 96.9 ABG Methemoglobin 0.3 ABG Sodium 132.8 L ABG Potassium 3.4 ABG Chloride 109.0 H ABG Glucose 100 H ABG Lactate 0.65 Carboxyhemoglobin 0.3 L FiO2 % 21.0 Sodium Potassium Chloride Carbon Dioxide Anion Gap BUN Creatinine Estimated GFR BUN/Creatinine Ratio Glucose POC Glucose 119 H Lactic Acid Calcium Arterial Blood Glucose 100 H Arterial Blood Ionized Calcium 1.1 L SARS-CoV-2 (PCR) Influenza A (Rapid) Influenza B (Rapid) Blood Type Antibody Screen 03/15/22 03/15/22 07:50 07:50 WBC RBC Hgb Hct MCV MCH MCHC RDW Plt Count Lymph % (Auto) [place] % (Auto) Eos % (Auto) Baso % (Auto) Lymph # (Auto) [place] # (Auto) Eos # (Auto) Baso # (Auto) Seg Neutrophils % Seg Neutrophils # ABG pH POC ABG pCO2 POC ABG pO2 POC ABG HCO3 ABG O2 Saturation POC ABG Base Excess ABG Hemoglobin ABG Oxyhemoglobin ABG Methemoglobin ABG Sodium ABG Potassium ABG Chloride ABG Glucose ABG Lactate Carboxyhemoglobin FiO2 % Sodium 136 L Potassium 3.4 L Chloride 109.8 H Carbon Dioxide 19 L Anion Gap 11 BUN 4 L Creatinine 0.4 L Estimated GFR > 60 BUN/Creatinine Ratio 10 Glucose 95 POC Glucose Lactic Acid 0.80 Calcium 7.2 L D Arterial Blood Glucose Arterial Blood Ionized Calcium SARS-CoV-2 (PCR) Influenza A (Rapid) Influenza B (Rapid) Blood Type Antibody Screen
[2022-03-15] MEDS: HEPARIN 5,000 UNIT/1 ML VIAL SUB-Q SCH ×2 (11:23→22:02)
[2022-03-15] MEDS ORDERED: POTASSIUM CHLORIDE ER 20 MEQ TAB PO SCH (11:41)
[2022-03-15] MEDS: SODIUM CHLORIDE 0.9% 1000 ML 1,000 ML IV SCH ×2 (16:03→22:17)
--- NOTE | 2022-03-15 16:10 | Progress Note ---
Assessment and Plan Assessment and plan: #Intrauterine at 31 weeks Management per primary #Pyelonephritis secondary to gram-negative rods Still currently febrile today with a T-max of 102.5 F Urine culture revealing gram-negative rods; still pending exact speciation and sensitivities. Infectious disease consulted; appreciate recs Continue cefepime per ID's recommendations. Ordering blood cultures just given the patient's continued fevers. Administer acetaminophen 325 mg as needed for fevers. #Hypoglycemiaresolved #Hypokalemia Potassium 3.4 Repleted. Continue to monitor with repeat BMP tomorrow. #Advanced care planning -Disease education conducted, care plan discussed, diagnoses discussed, prognosis discussed, and patient acknowledges understanding with care plan -Time: +30 min The hospitalist service will continue to follow. Please all hesitate to reach out should any questions arise. Disposition Plan: Continue medical management Total Time Spent with Patient (Minutes): 45 minutes History Interval history: Patient became febrile with a T-max of 102.5 F. Hospitalist Physical - Constitutional Vitals: Temp Pulse Resp BP Pulse Ox 99.9 F H 47 L 21 105/66 90 03/15/22 16:03 03/15/22 12:11 03/15/22 11:55 03/15/22 13:53 03/15/22 12:11 General appearance: Present: no acute distress, well-nourished - EENT Eyes: Present: PERRL, EOM intact ENT: hearing intact, clear oral mucosa, dentition normal - Neck Neck: Present: supple, normal ROM - Respiratory Respiratory effort: normal Respiratory: bilateral: CTA - Cardiovascular Rhythm: regular Heart Sounds: Present: S1 & S2 - Extremities Extremities: no ischemia, pulses intact, pulses symmetrical, No edema, normal temperature, normal color, Full ROM Peripheral Pulses: within normal limits - Abdominal General gastrointestinal: soft, non-tender, distended (Gravid abdomen), normal bowel sounds - Integumentary Integumentary: Present: clear, warm, dry - Psychiatric Psychiatric: appropriate mood/affect, intact judgment & insight, memory intact, cooperative - Neurologic Neurologic: CNII-XII intact, moves all extremities - Allied Health Allied health notes reviewed: nursing Results - Labs CBC & Chem 7: 03/15/22 07:50 03/15/22 07:50 Labs: Laboratory Last Values WBC 8.4 K/mm3 (4.5-11.0) 03/15/22 07:50 RBC 3.67 M/mm3 (3.65-5.03) 03/15/22 07:50 Hgb 10.1 gm/dl (10.1-14.3) 03/15/22 07:50 Hct 31.1 % (30.3-42.9) 03/15/22 07:50 MCV 85 fl (79-97) 03/15/22 07:50 MCH 28 pg (28-32) 03/15/22 07:50 MCHC 33 % (30-34) 03/15/22 07:50 RDW 16.6 % (13.2-15.2) H 03/15/22 07:50 Plt Count 121 K/mm3 (140-440) L 03/15/22 07:50 Lymph % (Auto) 9.1 % (13.4-35.0) L 03/15/22 07:50 Esmeralda % (Auto) 9.7 % (0.0-7.3) H 03/15/22 07:50 Eos % (Auto) 0.0 % (0.0-4.3) 03/15/22 07:50 Baso % (Auto) 0.1 % (0.0-1.8) 03/15/22 07:50 Lymph # (Auto) 0.8 K/mm3 (1.2-5.4) L 03/15/22 07:50 Esmeralda # (Auto) 0.8 K/mm3 (0.0-0.8) 03/15/22 07:50 Eos # (Auto) 0.0 K/mm3 (0.0-0.4) 03/15/22 07:50 Baso # (Auto) 0.0 K/mm3 (0.0-0.1) 03/15/22 07:50 Seg Neutrophils % 81.1 % (40.0-70.0) H 03/15/22 07:50 Seg Neutrophils # 6.8 K/mm3 (1.8-7.7) 03/15/22 07:50 ABG pH 7.460 (7.320-7.450) H 03/14/22 21:16 POC ABG pCO2 24.1 mmHg (32.0-48.0) L 03/14/22 21:16 POC ABG pO2 103.3 mmHg (83-108) 03/14/22 21:16 POC ABG HCO3 16.8 03/14/22 21:16 ABG O2 Saturation 97.5 (0-100) 03/14/22 21:16 POC ABG Base Excess -5.7 03/14/22 21:16 ABG Hemoglobin 10.4 (12.0-17.5) L 03/14/22 21:16 ABG Oxyhemoglobin 96.9 (94-98) 03/14/22 21:16 ABG Methemoglobin 0.3 (0.0-1.5) 03/14/22 21:16 ABG Sodium 132.8 mmol/L (136.0-145.0) L 03/14/22 21:16 ABG Potassium 3.4 mmol/L (3.40-4.50) 03/14/22 21:16 ABG Chloride 109.0 mmol/L (98-107) H 03/14/22 21:16 ABG Glucose 100 mg/dL (65-95) H 03/14/22 21:16 ABG Lactate 0.65 (0.18-30.0) 03/14/22 21:16 Carboxyhemoglobin 0.3 (0.5-1.5) L 03/14/22 21:16 FiO2 % 21.0 03/14/22 21:16 Sodium 136 mmol/L (137-145) L 03/15/22 07:50 Potassium 3.4 mmol/L (3.6-5.0) L 03/15/22 07:50 Chloride 109.8 mmol/L (98-107) H 03/15/22 07:50 Carbon Dioxide 19 mmol/L (22-30) L 03/15/22 07:50 Anion Gap 11 mmol/L 03/15/22 07:50 BUN 4 mg/dL (7-17) L 03/15/22 07:50 Creatinine 0.4 mg/dL (0.6-1.2) L 03/15/22 07:50 Estimated GFR > 60 ml/min 03/15/22 07:50 BUN/Creatinine Ratio 10 % 03/15/22 07:50 Glucose 95 mg/dL (65-100) 03/15/22 07:50 POC Glucose 119 mg/dL (70-105) H 03/14/22 11:19 Lactic Acid 0.80 mmol/L (0.7-2.0) 03/15/22 07:50 Calcium 7.2 mg/dL (8.4-10.2) L D 03/15/22 07:50 Arterial Blood Glucose 100 mg/dL (65-95) H 03/14/22 21:16 Arterial Blood Ionized Calcium 1.1 mg/dL (4.6-5.3) L 03/14/22 21:16 Urine Color Straw (Yellow) 03/13/22 Unknown Urine Turbidity Cloudy (Clear) 03/13/22 Unknown Specific [place] (Man) 1.010 (1.003-1.030) 03/13/22 Unknown Ur Protein (Man) 1+ mg/dL (Negative) 03/13/22 Unknown Ur Ketones (Man) 15 (Negative) 03/13/22 Unknown Ur Nitrite (Man) Negative (Negative) 03/13/22 Unknown Ur Reducing Substances Not Reportable 03/13/22 Unknown Urine Bilirubin (Man) Negative (Negative) 03/13/22 Unknown Urine Ictotest Not Reportable 03/13/22 Unknown Leukocyte Esterase (Man) Large (Negative) 03/13/22 Unknown Urine WBC (Auto) > 182.0 /HPF (0.0-6.0) H 03/13/22 Unknown Urine RBC (Auto) 52.0 /HPF (0.0-6.0) 03/13/22 Unknown U Epithel Cells (Auto) 4.0 /HPF (0-13.0) 03/13/22 Unknown Urine Bacteria (Auto) 2+ /HPF (Negative) 03/13/22 Unknown Urine RBC (Manual) 2+ (Negative) 03/13/22 Unknown Urine WBC Clumps 2+ /HPF 03/13/22 Unknown SARS-CoV-2 (PCR) Negative (Negative) 03/14/22 10:45 Influenza A (Rapid) Negative (Negative) 03/14/22 10:45 Influenza B (Rapid) Negative (Negative) 03/14/22 10:45 Fibronectin Positive (Negative) 03/13/22 22:49 Blood Type O POSITIVE 03/14/22 09:00 Antibody Screen Negative 03/14/22 09:00 Microbiology: Microbiology 03/14/22 06:59 Urine,Catheterized - Straight Catheter Urine Culture - Preliminary Gram Negative Vinayak 03/14/22 01:16 Peripheral/Venous Blood Culture - Preliminary Gram Negative Vinayak 03/14/22 01:16 Peripheral/Venous Blood Culture - Preliminary Gram Negative Vinayak Active Medications - Current Medications Current Medications: Generic Name Dose Route Start Last Admin Trade Name Freq PRN Reason Stop Dose Admin Acetaminophen 650 mg 03/14/22 05:59 03/15/22 11:55 Acetaminophen 325 Mg Tab PO 650 mg Q4H PRN Administration Pain, Mild (1-3) Fentanyl 100 mcg 03/14/22 05:59 Fentanyl 100 Mcg/2 Ml Inj IV Q2H PRN Pain, Moderate (4-6) Heparin Sodium (Porcine) 5,000 unit 03/14/22 10:00 03/15/22 11:23 Heparin 5,000 Unit/1 Ml Vial SUB-Q 5,000 unit Q12HR CAMRYN Administration Sodium Chloride 1,000 mls @ 150 mls/hr 03/14/22 19:45 03/15/22 16:03 Nacl 0.9% 1000 Ml IV 150 mls/hr DIRECT CAMRYN Administration Cefepime HCl 2 gm in 100 mls @ 200 mls/hr 03/14/22 23:00 03/15/22 07:28 Cefepime/Ns 2 Gm/100 Ml IV 03/22/22 00:00 200 mls/hr Q8H CAMRYN Administration Protocol Potassium Chloride 40 meq 03/15/22 11:41 Potassium Chloride Er 20 Meq Tab PO 03/15/22 23:00 ONCE CAMRYN
[2022-03-16] MEDS: CEFEPIME/NS 2 GM/100 ML 2 GM/100 ML BAG IV SCH ×2 (00:10→09:06)
[2022-03-16 04:45] LABS: Basophils % (Auto) 0.3 % (0.0-1.8); Eosinophils % (Auto) 0.2 % (0.0-4.3); Hematocrit 30.9 % (30.3-42.9); Hemoglobin 10.2 gm/dl (10.1-14.3); Lymphocytes # (Auto) 1.1 K/mm3 (1.2-5.4); Lymphocytes % (Auto) 12.5 % (13.4-35.0); Mean Corpuscular HGB Conc 33 % (30-34); Mean Corpuscular Volume 84 fl (79-97); Monocytes # (Auto) 0.9 K/mm3 (0.0-0.8); Monocytes % (Auto) 10.6 % (0.0-7.3); Platelet Count 125 K/mm3 (140-440); Red Cell Distribution Width 16.4 % (13.2-15.2)
[2022-03-16 04:58] LABS: Blood Urea Nitrogen 5 mg/dL (7-17); Calcium 7.5 mg/dL (8.4-10.2); Hemolysis Index 8
[2022-03-16 05:12] LABS: BUN/Creatinine Ratio 17
[2022-03-16] MEDS: POTASSIUM CHLORIDE ER 20 MEQ TAB PO SCH ×2 (10:56→22:00)
[2022-03-16] MEDS: HEPARIN 5,000 UNIT/1 ML VIAL SUB-Q SCH (10:57)
--- NOTE | 2022-03-16 11:12 | Progress Note ---
Assessment and Plan Cultures: 03/14/2022 blood culture: E.coli Urine culture: E.coli COVID-19 PCR: Negative Influenza A, B rapid antigen: Negative A/P: 26-year-old female about 21 weeks admitted with: #Sepsis, E.coli bacteremia secondary to UTI, ?R pyelonephritis #: About 31 weeks . #Mild thrombocytopenia: Probably from sepsis Recs: De-escalated to IV ceftriaxone 2 g daily. If she remains afebrile for more than 24 hours, okay for discharge on PO Keflex 500 mg QID x 7 more days. After completing this, recommend PO Keflex 250 mg at bedtime as prophylaxis till de livery. Will sign off. Please call with questions. Ruddy Kim MD, FACP, [facility] ([facility] O: [phone] F: [phone] C: [phone] Subjective Date of service: 03/16/22 Interval history: Febrile yesterday. No fever today. Objective - Exam Narrative Exam: Physical Exam: Constitutional: Alert, cooperative. No acute distress Head, Ears, Nose: Normocephalic, atraumatic. External ears, nose normal Eyes: Conjunctivae/corneas clear. No icterus. No ptosis. Neck: Supple, no meningeal signs Cardiovascular: S1, S2 + Respiratory: Good air entry, clear to auscultation bilaterally GI: Soft, non-tender; bowel sounds normal. No peritoneal signs. Gravid uterus. Musculoskeletal: No pedal edema, no cyanosis. Skin: No rash or abscess Hem/Lymphatic: No palpable cervical or supraclavicular nodes. No lymphangitis Psych: Mood ok. Affect normal Neurological: Awake, alert, oriented. No gross abnormality - Constitutional Vitals: Vital Signs Temp Pulse Resp BP Pulse Ox 98.0 F 81 16 101/57 98 03/16/22 09:05 03/16/22 09:05 03/16/22 09:05 03/16/22 09:05 03/16/22 09:05 Temperature -Last 24 Hours Temperature 98.0 F Temperature 99.0 F Temperature 99.5 F Temperature 99.9 F Temperature 99.6 F Temperature 102.5 F - Labs CBC & Chem 7: 03/16/22 04:13 03/16/22 04:13 Labs: Abnormal lab results 03/16/22 03/16/22 Range/Units 04:13 04:13 RDW 16.4 H (13.2-15.2) % Plt Count 125 L (140-440) K/mm3 Lymph % (Auto) 12.5 L (13.4-35.0) % [place] % (Auto) 10.6 H (0.0-7.3) % Lymph # (Auto) 1.1 L (1.2-5.4) K/mm3 [place] # (Auto) 0.9 H (0.0-0.8) K/mm3 Seg Neutrophils % 76.4 H (40.0-70.0) % Potassium 3.4 L (3.6-5.0) mmol/L Chloride 108.0 H (98-107) mmol/L Carbon Dioxide 19 L (22-30) mmol/L BUN 5 L (7-17) mg/dL Creatinine 0.3 L (0.6-1.2) mg/dL Calcium 7.5 L (8.4-10.2) mg/dL
--- NOTE | 2022-03-16 16:07 | Event Note ---
Date: 03/16/22 Patient is hemodynamically stable. Patient's blood culture has resulted with E. coli bacteremia secondary to right pyelonephritis. Infectious disease has been consulted concerning antibiotic management. Hospitalist service agrees with infectious disease's recommendations. The patient is currently being treated for hypokalemia. The hospitalist service will sign off today. Please feel free to reach out should any questions arise.
--- NOTE | 2022-03-16 19:02 | Progress Note ---
Assessment and Plan A: 31.2 weeks with E.coli Sepsis P: Continue antibiotics until am Probable discharge in am Subjective - Subjective Date of service: 03/16/22 Principal diagnosis: E.Coli Sepsis Interval history: Feeling better, no complaints Patient reports: movement normal, contractions, other (States that she is having "kidney pain" rates it 01/14) Objective - Vital Signs Vital Signs: Vital Signs - 12hr 03/16/22 03/16/22 03/16/22 09:04 09:05 14:09 Temperature 98.0 F Pulse Rate 76 87 142 H Respiratory 16 Rate Blood Pressure 101/57 Blood Pressure 101/57 [Right] O2 Sat by Pulse 100 98 86 Oximetry 03/16/22 03/16/22 03/16/22 14:12 14:14 14:16 Temperature 97.8 F Pulse Rate 71 71 78 Respiratory 16 Rate Blood Pressure 108/57 Blood Pressure 108/57 [Right] O2 Sat by Pulse 98 98 Oximetry - Exam Breasts: deferred Cardiovascular: Regular rate Lungs: Clear to auscultation Abdomen: Present: soft Vulva: both: normal Uterus: Present: fundal height at umbilicus FHR: category 1 Deep Tendon Reflex Grade: Normal +2 - Labs Labs: Abnormal Labs 03/13/22 03/14/22 03/14/22 Unknown 01:17 01:17 RDW 15.9 H Plt Count Lymph % (Auto) 6.3 L [place] % (Auto) 8.9 H Lymph # (Auto) 0.7 L [place] # (Auto) 0.9 H Seg Neutrophils % 84.5 H Seg Neutrophils # 9.0 H ABG pH POC ABG pCO2 ABG Hemoglobin ABG Sodium ABG Chloride ABG Glucose Carboxyhemoglobin Sodium Potassium Chloride Carbon Dioxide BUN Creatinine Glucose POC Glucose Lactic Acid 2.30 H* Calcium Arterial Blood Glucose Arterial Blood Ionized Calcium Urine WBC (Auto) > 182.0 H 03/14/22 03/14/22 03/14/22 10:20 11:12 11:19 RDW 16.1 H Plt Count 138 L Lymph % (Auto) 5.3 L [place] % (Auto) Lymph # (Auto) 0.4 L [place] # (Auto) Seg Neutrophils % 87.8 H Seg Neutrophils # ABG pH POC ABG pCO2 ABG Hemoglobin ABG Sodium ABG Chloride ABG Glucose Carboxyhemoglobin Sodium Potassium 3.0 L Chloride Carbon Dioxide BUN Creatinine 0.4 L Glucose 29 L* POC Glucose 119 H Lactic Acid Calcium Arterial Blood Glucose Arterial Blood Ionized Calcium Urine WBC (Auto) 03/14/22 03/15/22 03/15/22 21:16 07:50 07:50 RDW 16.6 H Plt Count 121 L Lymph % (Auto) 9.1 L [place] % (Auto) 9.7 H Lymph # (Auto) 0.8 L [place] # (Auto) Seg Neutrophils % 81.1 H Seg Neutrophils # ABG pH 7.460 H POC ABG pCO2 24.1 L ABG Hemoglobin 10.4 L ABG Sodium 132.8 L ABG Chloride 109.0 H ABG Glucose 100 H Carboxyhemoglobin 0.3 L Sodium 136 L Potassium 3.4 L Chloride 109.8 H Carbon Dioxide 19 L BUN 4 L Creatinine 0.4 L Glucose POC Glucose Lactic Acid Calcium 7.2 L D Arterial Blood Glucose 100 H Arterial Blood Ionized Calcium 1.1 L Urine WBC (Auto) 03/16/22 03/16/22 04:13 04:13 RDW 16.4 H Plt Count 125 L Lymph % (Auto) 12.5 L [place] % (Auto) 10.6 H Lymph # (Auto) 1.1 L [place] # (Auto) 0.9 H Seg Neutrophils % 76.4 H Seg Neutrophils # ABG pH POC ABG pCO2 ABG Hemoglobin ABG Sodium ABG Chloride ABG Glucose Carboxyhemoglobin Sodium Potassium 3.4 L Chloride 108.0 H Carbon Dioxide 19 L BUN 5 L Creatinine 0.3 L Glucose POC Glucose Lactic Acid Calcium 7.5 L Arterial Blood Glucose Arterial Blood Ionized Calcium Urine WBC (Auto) Laboratory Results - last 24 hr 03/16/22 03/16/22 04:13 04:13 WBC 8.5 RBC 3.70 Hgb 10.2 Hct 30.9 MCV 84 MCH 28 MCHC 33 RDW 16.4 H Plt Count 125 L Lymph % (Auto) 12.5 L [place] % (Auto) 10.6 H Eos % (Auto) 0.2 Baso % (Auto) 0.3 Lymph # (Auto) 1.1 L [place] # (Auto) 0.9 H Eos # (Auto) 0.0 Baso # (Auto) 0.0 Seg Neutrophils % 76.4 H Seg Neutrophils # 6.5 Sodium 137 Potassium 3.4 L Chloride 108.0 H Carbon Dioxide 19 L Anion Gap 13 BUN 5 L Creatinine 0.3 L Estimated GFR > 60 BUN/Creatinine Ratio 17 Glucose 81 Calcium 7.5 L
[2022-03-17 07:52] LABS: Blood Urea Nitrogen 6 mg/dL (7-17); Calcium 8.4 mg/dL (8.4-10.2); Hemolysis Index 1
[2022-03-17 07:55] LABS: BUN/Creatinine Ratio 15
--- NOTE | 2022-03-17 09:57 | Progress Note ---
Assessment and Plan O: Afebrile A: 31.3 weeks with E.Coli Sepsis - improving P: Discharge home today Sent home with RX for Keflex 500mg po every 6 hrs for one week. Then 250mg q hs. F/U with MD next week Subjective - Subjective Principal diagnosis: E.Coli Sepsis Interval history: Feeling better, no complaints Patient reports: movement normal, contractions, other (States that she is having "kidney pain" rates it 01/14) Objective - Vital Signs Vital Signs: Vital Signs - 12hr 03/17/22 03/17/22 03/17/22 01:51 01:52 01:54 Temperature 97.8 F Pulse Rate 70 71 71 Respiratory 14 Rate Blood Pressure 113/63 Blood Pressure 113/63 [Right] O2 Sat by Pulse 98 98 Oximetry O2 Sat by Pulse Oximetry [ Anterior Bilateral Throughout] 03/17/22 03/17/22 03/17/22 01:59 02:04 02:09 Temperature Pulse Rate 70 79 82 Respiratory Rate Blood Pressure Blood Pressure [Right] O2 Sat by Pulse 97 98 98 Oximetry O2 Sat by Pulse Oximetry [ Anterior Bilateral Throughout] 03/17/22 03/17/22 03/17/22 02:14 02:19 02:24 Temperature Pulse Rate 78 70 78 Respiratory Rate Blood Pressure Blood Pressure [Right] O2 Sat by Pulse 98 98 98 Oximetry O2 Sat by Pulse Oximetry [ Anterior Bilateral Throughout] 03/17/22 03/17/22 03/17/22 02:29 02:34 02:39 Temperature Pulse Rate 67 61 66 Respiratory Rate Blood Pressure Blood Pressure [Right] O2 Sat by Pulse 97 97 98 Oximetry O2 Sat by Pulse Oximetry [ Anterior Bilateral Throughout] 03/17/22 03/17/22 03/17/22 02:44 02:49 02:54 Temperature Pulse Rate 67 79 72 Respiratory Rate Blood Pressure Blood Pressure [Right] O2 Sat by Pulse 98 98 98 Oximetry O2 Sat by Pulse Oximetry [ Anterior Bilateral Throughout] 03/17/22 03/17/22 03/17/22 02:59 03:04 03:09 Temperature Pulse Rate 73 68 66 Respiratory Rate Blood Pressure Blood Pressure [Right] O2 Sat by Pulse 98 98 98 Oximetry O2 Sat by Pulse Oximetry [ Anterior Bilateral Throughout] 03/17/22 03/17/22 03/17/22 03:14 03:19 03:24 Temperature Pulse Rate 79 77 78 Respiratory Rate Blood Pressure Blood Pressure [Right] O2 Sat by Pulse 97 98 97 Oximetry O2 Sat by Pulse Oximetry [ Anterior Bilateral Throughout] 03/17/22 03/17/22 03/17/22 03:29 03:30 03:31 Temperature 97.9 F Pulse Rate 73 73 68 Respiratory 16 Rate Blood Pressure 116/59 Blood Pressure 116/59 [Right] O2 Sat by Pulse 97 97 Oximetry O2 Sat by Pulse Oximetry [ Anterior Bilateral Throughout] 03/17/22 03/17/22 03/17/22 07:19 07:21 07:23 Temperature 97.9 F Pulse Rate 71 65 Respiratory 16 Rate Blood Pressure 106/60 Blood Pressure 106/60 [Right] O2 Sat by Pulse 90 99 99 Oximetry O2 Sat by Pulse 99 Oximetry [ Anterior Bilateral Throughout] 03/17/22 03/17/22 03/17/22 07:28 07:33 07:38 Temperature Pulse Rate 63 65 65 Respiratory Rate Blood Pressure Blood Pressure [Right] O2 Sat by Pulse 98 98 98 Oximetry O2 Sat by Pulse Oximetry [ Anterior Bilateral Throughout] 03/17/22 03/17/22 07:43 07:48 Temperature Pulse Rate 64 74 Respiratory Rate Blood Pressure Blood Pressure [Right] O2 Sat by Pulse 98 98 Oximetry O2 Sat by Pulse Oximetry [ Anterior Bilateral Throughout] - Exam Breasts: deferred Cardiovascular: Regular rate Lungs: Clear to auscultation Abdomen: Present: soft Uterus: Present: fundal height above umbilicus FHR: category 1 Uterine Contraction Monitor Mode: External Deep Tendon Reflex Grade: Normal +2 - Labs Labs: Abnormal Labs 03/13/22 03/14/22 03/14/22 Unknown 01:17 01:17 RDW 15.9 H Plt Count Lymph % (Auto) 6.3 L [place] % (Auto) 8.9 H Lymph # (Auto) 0.7 L [place] # (Auto) 0.9 H Seg Neutrophils % 84.5 H Seg Neutrophils # 9.0 H ABG pH POC ABG pCO2 ABG Hemoglobin ABG Sodium ABG Chloride ABG Glucose Carboxyhemoglobin Sodium Potassium Chloride Carbon Dioxide BUN Creatinine Glucose POC Glucose Lactic Acid 2.30 H* Calcium Arterial Blood Glucose Arterial Blood Ionized Calcium Urine WBC (Auto) > 182.0 H 03/14/22 03/14/22 03/14/22 10:20 11:12 11:19 RDW 16.1 H Plt Count 138 L Lymph % (Auto) 5.3 L [place] % (Auto) Lymph # (Auto) 0.4 L [place] # (Auto) Seg Neutrophils % 87.8 H Seg Neutrophils # ABG pH POC ABG pCO2 ABG Hemoglobin ABG Sodium ABG Chloride ABG Glucose Carboxyhemoglobin Sodium Potassium 3.0 L Chloride Carbon Dioxide BUN Creatinine 0.4 L Glucose 29 L* POC Glucose 119 H Lactic Acid Calcium Arterial Blood Glucose Arterial Blood Ionized Calcium Urine WBC (Auto) 03/14/22 03/15/22 03/15/22 21:16 07:50 07:50 RDW 16.6 H Plt Count 121 L Lymph % (Auto) 9.1 L [place] % (Auto) 9.7 H Lymph # (Auto) 0.8 L [place] # (Auto) Seg Neutrophils % 81.1 H Seg Neutrophils # ABG pH 7.460 H POC ABG pCO2 24.1 L ABG Hemoglobin 10.4 L ABG Sodium 132.8 L ABG Chloride 109.0 H ABG Glucose 100 H Carboxyhemoglobin 0.3 L Sodium 136 L Potassium 3.4 L Chloride 109.8 H Carbon Dioxide 19 L BUN 4 L Creatinine 0.4 L Glucose POC Glucose Lactic Acid Calcium 7.2 L D Arterial Blood Glucose 100 H Arterial Blood Ionized Calcium 1.1 L Urine WBC (Auto) 03/16/22 03/16/22 03/17/22 04:13 04:13 04:00 RDW 16.4 H Plt Count 125 L Lymph % (Auto) 12.5 L [place] % (Auto) 10.6 H Lymph # (Auto) 1.1 L [place] # (Auto) 0.9 H Seg Neutrophils % 76.4 H Seg Neutrophils # ABG pH POC ABG pCO2 ABG Hemoglobin ABG Sodium ABG Chloride ABG Glucose Carboxyhemoglobin Sodium Potassium 3.4 L Chloride 108.0 H Carbon Dioxide 19 L BUN 5 L 6 L Creatinine 0.3 L 0.4 L Glucose POC Glucose Lactic Acid Calcium 7.5 L Arterial Blood Glucose Arterial Blood Ionized Calcium Urine WBC (Auto) Laboratory Results - last 24 hr 03/17/22 04:00 Sodium 139 Potassium 3.8 Chloride 106.4 Carbon Dioxide 23 Anion Gap 13 BUN 6 L Creatinine 0.4 L Estimated GFR > 60 BUN/Creatinine Ratio 15 Glucose 77 Calcium 8.4
--- NOTE | 2022-03-17 09:59 | Discharge Summary ---
Providers - Providers Date of Admission: 03/14/22 06:00 Date of discharge: 03/17/22 Attending physician: LIZZY CASTILLO MD 03/14/22 14:59 Consult to Physician [CONS] Stat Comment: Consulting Provider: LORETA BROWN Physician Instructions: Kindly review and manage Reason For Exam: Pyelonephritis 03/15/22 09:19 Consult to Physician [CONS] Urgent Comment: Consulting Provider: CATALINA AGUILERA Physician Instructions: Reason For Exam: Bacteremia, urosepsis, pyelo Primary care physician: LIZZY CASTILLO MD Hospitalization Reason for admission: other (Pyelonephritis, Ecoli sepsis) Hospital course: DX with E.coli sepsis. Responded well to antibiotics, sent home on PO Keflex Condition at discharge: Good Disposition: 01 HOME / SELF CARE / HOMELESS Plan - Discharge Medications Prescriptions: cephALEXin [Keflex] 250 mg PO QDAY #30 cap cephALEXin [Keflex] 500 mg PO Q6HR 7 Days #28 capsule - Provider Discharge Summary Activity: routine Diet: routine Instructions: routine Additional instructions: [] Smoking cessation referral if applicable(refer to patient education folder for contact #) [] Refer to [facility]'s [facility] Booklet Call your doctor immediately for: * Fever > 100.5 * Heavy vaginal bleeding ( >1 pad per hour) * Severe persistent headache * Shortness of breath * Reddened, hot, painful area to leg or breast * Drainage or odor from incision. * Keep incision clean and dry at all times and follow doctor's instructions regarding bathing/showering - Follow up plan Follow up: LIZZY CASTILLO MD [Primary Care Provider] - 7 Days Forms: [facility] Discharge Summary
[2022-03-17] MEDS ORDERED: cefTRIAXone/NS 2 GM/100 ML 2 GM/100 ML BAG IV SCH (10:00)
[2022-03-17 10:23] VITALS: BP 108/59
== END 2022-03-17 10:30 | disposition home or self-care (01) | DRG 831 ==
LOC: TRG 17:25 → APU 17:26 → TRG 03-14 06:00 → LD 03-14 06:00
PROVIDERS: ADMIT Obstetrics & Gynecology Gynecology; ATTEND Obstetrics & Gynecology Gynecology
DX: O98.813 Other maternal infectious and parasitic diseases complicating pregnancy, third trimester (principal); A41.51 Sepsis due to Escherichia coli [E. coli]; O23.03 Infections of kidney in pregnancy, third trimester; O99.113 Other diseases of the blood and blood-forming organs and certain disorders involving the immune mechanism complicating pregnancy, third trimester; Z3A.31 31 weeks gestation of pregnancy; Z20.822 Contact with and (suspected) exposure to COVID-19; O99.283 Endocrine, nutritional and metabolic diseases complicating pregnancy, third trimester; E87.6 Hypokalemia; E16.2 Hypoglycemia, unspecified; D69.6 Thrombocytopenia, unspecified
CPT/HCPCS: 36415; 36600; 59025; 76770; 76817; 80048; 81001; 82140; 82731; 82805; 82962; 85025; 86850; 86900; 86901; 87040; 87076; 87086; 87116; 87186; 87400; G0378; J0690; J0692; J0696; J1644; J3480; J7030; J7120; U0003